=== PATIENT | female | born 1940 | race Caucasian/White ===

== ENCOUNTER → 2020-03-25 | Outpatient (CLI) | payer MEDICARE, BC | LOC: VAS 13:46 | DX: R60.0 Localized edema (principal) ==

== ENCOUNTER → 2021-01-07 | Outpatient (CLI) | payer MEDICARE, BC | LOC: RAD 14:00 | DX: I82.411 Acute embolism and thrombosis of right femoral vein (principal); I87.2 Venous insufficiency (chronic) (peripheral) ==